=== PATIENT | male | born 1985 | race Caucasian/White ===

== ENCOUNTER 2024-08-18 11:50 | Emergency (ER) | payer MEDICAID ==
[~2024-08-18] VITALS: Ht 226.1 cm; Wt 72.5 kg
[2024-08-18 11:56] VITALS: BP 126/98; PULSE 102; TEMP 97; O2SAT 100
[2024-08-18 12:14] VITALS: RESP 16
== END 2024-08-18 12:15 | disposition home or self-care (01) ==
LOC: ER 11:51
DX: Z00.00 Encounter for general adult medical examination without abnormal findings (principal); F17.210 Nicotine dependence, cigarettes, uncomplicated
CPT/HCPCS: 99281